=== PATIENT | male | born 1990 | race Caucasian/White ===

== ENCOUNTER 2020-08-20 15:56 | Emergency (ER) | payer OTHER ==
[~2020-08-20 15:56] MED LIST: KEFLEX500 MG PO
[2020-08-20 16:28] LABS: BASOPHIL 0.4 % (0-2); HCT 45.2 % (42.0-52.0); HGB 15.6 g/dl (13.2-18.0); LYMPHOCYTE 24.8 % (15-48); MCH 28.9 pg (25.0-31.0); MCHC 34.5 g/dL (32.0-36.0); MCV 83.7 fL (78.0-100.0); MONOCYTE 6.7 % (0-12); MPV 9.2 fL (6.0-9.5); NEUTROPHIL 66.8 % (41-80); NRBC 0; PLT 264 K/uL (150-400); RDW 12.7 % (11.5-14.0); WBC 7.8 K/uL (4.0-10.5)
[2020-08-20 16:39] LABS: ALBUMIN 4.1 g/dL (3.4-5.0); BILIRUBIN - TOTAL 0.2 mg/dL (0.2-1.0); CREATININE 0.81 mg/dL (0.67-1.17); GLOBULIN (CALCULATION) 3.7 g/dL; POTASSIUM 3.6 mmol/L (3.5-5.1); TOTAL PROTEIN 7.8 g/dL (6.4-8.2)
== END 2020-08-20 18:17 | disposition home or self-care (01) ==
LOC: FER 15:56
PROVIDERS: Emergency Medicine
DX: R07.89 Other chest pain (principal); R00.0 Tachycardia, unspecified; I10 Essential (primary) hypertension; F17.200 Nicotine dependence, unspecified, uncomplicated; Z79.899 Other long term (current) drug therapy
CPT/HCPCS: 36415; 71045; 71275; 80053; 84484; 85025; 85379; 93005; Q9967